=== PATIENT | female | born 2000 | race Two or more races ===

== ENCOUNTER 2021-07-04 09:45 | Outpatient (CLI) | payer OTHER | END 2021-07-04 10:02 | disposition home or self-care (01) | LOC: SONOGRAMA 09:45 | PROVIDERS: ATTEND Obstetrics & Gynecology Gynecology | DX: N84.1 Polyp of cervix uteri (principal) ==

== ENCOUNTER 2021-09-25 12:45 | Inpatient (IN) | payer OTHER ==
[~2021-09-25] VITALS: Ht 157.5 cm; Wt 79.4 kg
[2021-10-01] MEDS ORDERED: TANDEM PLUS CA1 EACH PO (07:01)
[2021-10-01] MEDS ORDERED: IBU800 MG PO (07:03)
[2021-10-02] MEDS ORDERED: LEVSIN/SL0.125 MG SL (07:10)
[2021-10-02] MEDS ORDERED: IBUPROFEN800 MG PO (07:10)
[2021-10-02] MEDS ORDERED: AMOX1TAB5 PO (07:10)
== END 2021-10-02 09:16 | disposition home or self-care (01) | DRG 743 ==
LOC: SURH 09-30 08:15 → O/R 09-30 08:24 → OB/GYN 09-30 08:24 → SURH 09-30 12:45 → OB/GYN 09-30 15:19
PROVIDERS: ADMIT Obstetrics & Gynecology Gynecology; ATTEND Obstetrics & Gynecology Gynecology
PROC: 0UB90ZZ Excision of Uterus, Open Approach (ICD-10-PCS; principal; 2021-09-30 08:15)
DX: D25.0 Submucous leiomyoma of uterus (principal); Z20.822 Contact with and (suspected) exposure to COVID-19